=== PATIENT | male | born 1940 | race Caucasian/White ===

== ENCOUNTER 2020-06-15 07:37 | Inpatient (IN) | payer MEDICARE, BC ==
[~2020-06-15] VITALS: Ht 180.3 cm; Wt 50.8 kg
[~2020-06-15 07:37] MED LIST: BRETHINE PO; CEFDINIR300 MG PO; CENTRUM SILVER1 EAC1 PO; COZAAR 25MG TAB25 MG PO; DOXYCYCLINE HY100 M2 PO; FEOSOL325 MG PO; FLOMAX 0.4 MG0.4 MG PO; HYDROCODON-ACE1 EAC6 PO; IPRAT-ALBUT 0.5-3 ML INH; LASIX20 MG PO; LEVAQUIN750 MG PO; MEDROL DOSEPAK 24 MG PO; PREDNISONE 5 MG5 MG PO; PREDNISONE20 MG PO; PROAIR HFA8.5 GM INH; PROSCAR 5 MG TAB5 MG PO; SINGULAIR10 MG PO; SPIRIVA18 MCG INH; THEOPHYLLINE400 MG PO; VIBRAMYCIN100 MG PO; WIXELA 250-501 EACH INH
[2020-06-15 08:42] LABS: HEMOGLOBIN 8.7 gm/dl (14.0-17.5); RED BLOOD COUNT 2.87 M/UL (4.20-5.50); WHITE BLOOD COUNT 7.2 K/UL (4.5-11.0)
[2020-06-16 03:47] LABS: HEMOGLOBIN 8.7 gm/dl (14.0-17.5); RED BLOOD COUNT 2.89 M/UL (4.20-5.50); WHITE BLOOD COUNT 5.6 K/UL (4.5-11.0)
[2020-06-17 04:28] LABS: RED BLOOD COUNT 2.34 M/UL (4.20-5.50); WHITE BLOOD COUNT 3.7 K/UL (4.5-11.0)
[2020-06-17 18:05] LABS: HEMOGLOBIN 8.6 gm/dl (14.0-17.5)
[2020-06-18 03:26] LABS: HEMOGLOBIN 8.9 gm/dl (14.0-17.5)
[2020-06-18 03:50] LABS: RED BLOOD COUNT 2.98 M/UL (4.20-5.50); WHITE BLOOD COUNT 7.7 K/UL (4.5-11.0)
[2020-06-19 03:19] LABS: HEMOGLOBIN 8.2 gm/dl (14.0-17.5); RED BLOOD COUNT 2.74 M/UL (4.20-5.50); WHITE BLOOD COUNT 8.5 K/UL (4.5-11.0)
[2020-10-23] MEDS ORDERED: CIPRO500 MG PO (16:05)
== END 2020-06-19 12:47 | disposition short-term general hospital (02) | DRG 682 ==
LOC: ER1 07:37 → CDU 12:35 → PROG CARE 12:35
PROVIDERS: Emergency Medicine; Internal Medicine Pulmonary Disease; Physician Assistant; ADMIT Internal Medicine
PROC: 5A09457 Assistance with Respiratory Ventilation, 24-96 Consecutive Hours, Continuous Positive Airway Pressure (ICD-10-PCS; 2020-06-15)
PROC: 30233N1 Transfusion of Nonautologous Red Blood Cells into Peripheral Vein, Percutaneous Approach (ICD-10-PCS; principal; 2020-06-17)
DX: N17.9 Acute kidney failure, unspecified (principal); J96.21 Acute and chronic respiratory failure with hypoxia; J96.22 Acute and chronic respiratory failure with hypercapnia; E43 Unspecified severe protein-calorie malnutrition; J44.1 Chronic obstructive pulmonary disease with (acute) exacerbation; Z68.1 Body mass index [BMI] 19.9 or less, adult; R64 Cachexia; J44.0 Chronic obstructive pulmonary disease with (acute) lower respiratory infection; I12.0 Hypertensive chronic kidney disease with stage 5 chronic kidney disease or end stage renal disease; Z20.822 Contact with and (suspected) exposure to COVID-19; N13.1 Hydronephrosis with ureteral stricture, not elsewhere classified; E87.70 Fluid overload, unspecified; Z66 Do not resuscitate; N18.30 Chronic kidney disease, stage 3 unspecified; I48.0 Paroxysmal atrial fibrillation; I71.4 Abdominal aortic aneurysm, without rupture; R62.7 Adult failure to thrive; F17.210 Nicotine dependence, cigarettes, uncomplicated; M19.90 Unspecified osteoarthritis, unspecified site; M81.0 Age-related osteoporosis without current pathological fracture; J60 Coalworker's pneumoconiosis; M95.4 Acquired deformity of chest and rib; J20.9 Acute bronchitis, unspecified; D63.1 Anemia in chronic kidney disease; N40.0 Benign prostatic hyperplasia without lower urinary tract symptoms; Z80.0 Family history of malignant neoplasm of digestive organs; Z88.0 Allergy status to penicillin; Z99.81 Dependence on supplemental oxygen; Z80.7 Family history of other malignant neoplasms of lymphoid, hematopoietic and related tissues; Z98.49 Cataract extraction status, unspecified eye; Z82.49 Family history of ischemic heart disease and other diseases of the circulatory system; Z83.6 Family history of other diseases of the respiratory system; Z84.1 Family history of disorders of kidney and ureter; Z88.7 Allergy status to serum and vaccine; Z79.899 Other long term (current) drug therapy
CPT/HCPCS: 36415; 36430; 36600; 71045; 80053; 81001; 82550; 82553; 82803; 83540; 83550; 83690; 83735; 83874; 83880; 84484; 85014; 85018; 85025; 86140; 86850; 86900; 86901; 86920; 87086; 93005; 94640; 94660; 94664; 94760; 96365; 96375; 97162; 99285; A6212; J1650; J1940; J2405; J2920; J2930; J7030; P9016; U0002

== ENCOUNTER 2020-07-06 07:20 | Inpatient (IN) | payer MEDICARE, BC ==
[~2020-07-06] VITALS: Ht 180.3 cm; Wt 52.2 kg
[2020-07-06 09:13] LABS: RED BLOOD COUNT 1.7 M/UL (4.20-5.50); WHITE BLOOD COUNT 7.8 K/UL (4.5-11.0)
[2020-07-06 10:13] LABS: HEMOGLOBIN 5.1 gm/dl (14.0-17.5)
[2020-07-06] MEDS ORDERED: ELIQUIS 2.5 MG2.5 MG PO (10:31)
[2020-07-06] MEDS ORDERED: NICOTINE PATCH1 EAC2 TOP (10:43)
[2020-07-06] MEDS ORDERED: MIRALAX17 GM PO (10:46)
[2020-07-06] MEDS ORDERED: VITAMIN B-121000 MCG PO (10:51)
[2020-07-06 23:34] LABS: HEMOGLOBIN 6.8 gm/dl (14.0-17.5)
[2020-07-07 07:09] LABS: HEMOGLOBIN 8.2 gm/dl (14.0-17.5)
[2020-07-07 07:32] LABS: RED BLOOD COUNT 2.79 M/UL (4.20-5.50); WHITE BLOOD COUNT 5.7 K/UL (4.5-11.0)
[2020-07-07 14:12] LABS: HEMOGLOBIN 7.8 gm/dl (14.0-17.5)
[2020-07-08 04:05] LABS: HEMOGLOBIN 8.5 gm/dl (14.0-17.5); RED BLOOD COUNT 2.84 M/UL (4.20-5.50); WHITE BLOOD COUNT 5.5 K/UL (4.5-11.0)
--- NOTE | 2020-07-08 04:55 | NUR ---
MORNING LABS CAME BACK WITH GLUCOSE AT 68. GAVE PATIENT 7UP AND APPLE JUICE WITH SUGAR ADDED.
[2020-07-08 18:23] LABS: HEMOGLOBIN 8.7 gm/dl (14.0-17.5); RED BLOOD COUNT 2.96 M/UL (4.20-5.50)
[2020-07-08 18:30] LABS: WHITE BLOOD COUNT 7.6 K/UL (4.5-11.0)
[2020-07-09 04:11] LABS: HEMOGLOBIN 8.1 gm/dl (14.0-17.5); RED BLOOD COUNT 2.79 M/UL (4.20-5.50)
[2020-07-10 03:02] LABS: HEMOGLOBIN 7.6 gm/dl (14.0-17.5); RED BLOOD COUNT 2.61 M/UL (4.20-5.50); WHITE BLOOD COUNT 5.3 K/UL (4.5-11.0)
[2020-07-11 02:32] LABS: HEMOGLOBIN 8.6 gm/dl (14.0-17.5); RED BLOOD COUNT 2.95 M/UL (4.20-5.50); WHITE BLOOD COUNT 5.5 K/UL (4.5-11.0)
[2020-07-12 07:18] LABS: HEMOGLOBIN 8.7 gm/dl (14.0-17.5); RED BLOOD COUNT 2.98 M/UL (4.20-5.50); WHITE BLOOD COUNT 5.5 K/UL (4.5-11.0)
[2020-07-13 02:44] LABS: HEMOGLOBIN 7.7 gm/dl (14.0-17.5); RED BLOOD COUNT 2.81 M/UL (4.20-5.50)
[2020-07-13 03:20] LABS: WHITE BLOOD COUNT 3.9 K/UL (4.5-11.0)
[2020-07-14 02:20] LABS: HEMOGLOBIN 8.2 gm/dl (14.0-17.5); RED BLOOD COUNT 2.82 M/UL (4.20-5.50); WHITE BLOOD COUNT 4.6 K/UL (4.5-11.0)
[2020-07-15 03:54] LABS: HEMOGLOBIN 8.2 gm/dl (14.0-17.5); RED BLOOD COUNT 2.79 M/UL (4.20-5.50); WHITE BLOOD COUNT 4.9 K/UL (4.5-11.0)
[2020-07-15] MEDS ORDERED: ZYVOX600 MG PO (17:13)
[2020-07-16 02:37] LABS: HEMOGLOBIN 8.4 gm/dl (14.0-17.5); RED BLOOD COUNT 2.88 M/UL (4.20-5.50); WHITE BLOOD COUNT 4.9 K/UL (4.5-11.0)
[2020-10-23] MEDS ORDERED: CIPRO500 MG PO (16:05)
== END 2020-07-16 16:45 | disposition home health service (06) | DRG 177 ==
LOC: ER1 07:20 → MED SURG 4 11:26 → PROG CARE 11:26 → CDU 11:26 → PROG CARE 19:39 → M/S 07-14 13:24 → MED SURG 4 07-14 20:34
PROVIDERS: Emergency Medicine; Internal Medicine; Internal Medicine Infectious Disease; Physician Assistant Medical; ADMIT Internal Medicine
PROC: 30233N1 Transfusion of Nonautologous Red Blood Cells into Peripheral Vein, Percutaneous Approach (ICD-10-PCS; 2020-07-06)
PROC: 30233N1 Transfusion of Nonautologous Red Blood Cells into Peripheral Vein, Percutaneous Approach (ICD-10-PCS; 2020-07-07)
PROC: B24BZZZ Ultrasonography of Heart with Aorta (ICD-10-PCS; principal; 2020-07-12)
DX: J15.8 Pneumonia due to other specified bacteria (principal); I50.33 Acute on chronic diastolic (congestive) heart failure; D62 Acute posthemorrhagic anemia; Z20.822 Contact with and (suspected) exposure to COVID-19; I13.0 Hypertensive heart and chronic kidney disease with heart failure and stage 1 through stage 4 chronic kidney disease, or unspecified chronic kidney disease; N39.0 Urinary tract infection, site not specified; R78.81 Bacteremia; N13.30 Unspecified hydronephrosis; J44.0 Chronic obstructive pulmonary disease with (acute) lower respiratory infection; I48.20 Chronic atrial fibrillation, unspecified; J96.11 Chronic respiratory failure with hypoxia; E46 Unspecified protein-calorie malnutrition; Z68.1 Body mass index [BMI] 19.9 or less, adult; N18.30 Chronic kidney disease, stage 3 unspecified; D50.9 Iron deficiency anemia, unspecified; B95.2 Enterococcus as the cause of diseases classified elsewhere; E16.2 Hypoglycemia, unspecified; Z66 Do not resuscitate; I27.20 Pulmonary hypertension, unspecified; G89.29 Other chronic pain; M54.9 Dorsalgia, unspecified; J60 Coalworker's pneumoconiosis; N40.0 Benign prostatic hyperplasia without lower urinary tract symptoms; F17.210 Nicotine dependence, cigarettes, uncomplicated; Z99.81 Dependence on supplemental oxygen; Z80.0 Family history of malignant neoplasm of digestive organs; Z88.0 Allergy status to penicillin; Z80.7 Family history of other malignant neoplasms of lymphoid, hematopoietic and related tissues; Z82.49 Family history of ischemic heart disease and other diseases of the circulatory system; Z88.7 Allergy status to serum and vaccine; Z79.899 Other long term (current) drug therapy; Z79.01 Long term (current) use of anticoagulants
CPT/HCPCS: ECHO; 36415; 36430; 36600; 71045; 80048; 80053; 80202; 81001; 82270; 82550; 82553; 82607; 82728; 82746; 82803; 82962; 83540; 83550; 83605; 83735; 83874; 83880; 84484; 85014; 85018; 85025; 85027; 85610; 85730; 86140; 86850; 86900; 86901; 86920; 87040; 87077; 87086; 87186; 92610; 93005; 93306; 94640; 94664; 94760; 96365; 96366; 96367; 96368; 96376; 97110-GP-CQ; 97163; 97530-GP-CQ; 99285; A6212; C9113; J0456; J0696; J1610; J1756; J1940; J2185; J2248; J2270; J3370; J3475; J7030; J7050; J7070; P9016; P9047; U0002

== ENCOUNTER 2020-08-06 17:49 | Emergency (ER) | payer MEDICARE, BC ==
[~2020-08-06 17:49] MED LIST changes: +ELIQUIS 2.5 MG2.5 MG PO; +MIRALAX17 GM PO; +NICOTINE PATCH1 EAC2 TOP; +VITAMIN B-121000 MCG PO; +ZYVOX600 MG PO
[2020-08-06 19:04] LABS: HEMOGLOBIN 7.6 gm/dl (14.0-17.5); RED BLOOD COUNT 2.58 M/UL (4.20-5.50); WHITE BLOOD COUNT 5.6 K/UL (4.5-11.0)
[2020-08-06 19:26] LABS: BUN/CREATININE RATIO 21 (0-10)
[2020-08-06] MEDS ORDERED: MACROBID 100 M100 M1 PO (21:18)
[2020-08-06] MEDS ORDERED: PREDNISONE 10 M10 MG PO (21:25)
[2020-10-23] MEDS ORDERED: CIPRO500 MG PO (16:05)
== END 2020-08-06 21:45 | disposition home or self-care (01) ==
LOC: ER1 17:49
PROVIDERS: Physician Assistant
DX: J44.1 Chronic obstructive pulmonary disease with (acute) exacerbation (principal); N39.0 Urinary tract infection, site not specified; N18.9 Chronic kidney disease, unspecified; I50.9 Heart failure, unspecified; Z20.822 Contact with and (suspected) exposure to COVID-19; F17.210 Nicotine dependence, cigarettes, uncomplicated; Z88.0 Allergy status to penicillin; Z79.899 Other long term (current) drug therapy
CPT/HCPCS: 0240U; 36415; 71045; 80053; 81001; 82550; 82553; 83735; 83874; 83880; 84484; 85025; 87086; 93005; 94664; 96374; 99285; J2930

== ENCOUNTER 2020-08-22 13:46 | Inpatient (IN) | payer MEDICARE, BC ==
[~2020-08-22] VITALS: Ht 177.8 cm; Wt 58.7 kg
[~2020-08-22 13:46] MED LIST changes: +MACROBID 100 M100 M1 PO; +PREDNISONE 10 M10 MG PO
[2020-08-22 15:30] LABS: HEMOGLOBIN 9.2 gm/dl (14.0-17.5); RED BLOOD COUNT 3.06 M/UL (4.20-5.50); WHITE BLOOD COUNT 20.4 K/UL (4.5-11.0)
[2020-08-23 04:11] LABS: HEMOGLOBIN 9.4 gm/dl (14.0-17.5); RED BLOOD COUNT 3.04 M/UL (4.20-5.50); WHITE BLOOD COUNT 18.2 K/UL (4.5-11.0)
[2020-08-24 04:22] LABS: HEMOGLOBIN 7.7 gm/dl (14.0-17.5)
[2020-08-24 04:25] LABS: RED BLOOD COUNT 2.58 M/UL (4.20-5.50); WHITE BLOOD COUNT 11.5 K/UL (4.5-11.0)
[2020-08-25 03:42] LABS: HEMOGLOBIN 7.7 gm/dl (14.0-17.5); RED BLOOD COUNT 2.56 M/UL (4.20-5.50); WHITE BLOOD COUNT 8.9 K/UL (4.5-11.0)
[2020-08-26 11:08] LABS: HEMOGLOBIN 8.4 gm/dl (14.0-17.5); RED BLOOD COUNT 2.72 M/UL (4.20-5.50)
[2020-08-27] MEDS ORDERED: MULTAQ400 MG PO (09:08)
[2020-08-27] MEDS ORDERED: HYDROXYZINE PAM25 MG PO (09:08)
[2020-08-27] MEDS ORDERED: ROBITUSSIN DM UD5 ML PO (09:13)
--- NOTE | 2020-08-27 11:21 | NUR ---
08/27/20 1115 CALLED [facility] AND SPOKE TO THEM ABOUT PATIENT DISCHARGE. INFORMED THEM THAT PATIENT WILL NEED A PERIPHERAL IV PLACED FOR 5 DAYS OF ANTIBIOTICS Q8H AT HOME STARTING BOOKER.
[2020-10-23] MEDS ORDERED: CIPRO500 MG PO (16:05)
== END 2020-08-27 13:10 | disposition home health service (06) | DRG 291 ==
LOC: ER1 13:46 → CDU 16:37 → ER1 16:37 → CDU 21:03 → MED SURG 4 21:03 → CDU 08-23 13:35 → PROG CARE 08-24 04:31
PROVIDERS: Internal Medicine; Physician Assistant Medical; Preventive Medicine Occupational Medicine; ADMIT Family Medicine
DX: I13.0 Hypertensive heart and chronic kidney disease with heart failure and stage 1 through stage 4 chronic kidney disease, or unspecified chronic kidney disease (principal); I50.33 Acute on chronic diastolic (congestive) heart failure; Z20.822 Contact with and (suspected) exposure to COVID-19; J96.21 Acute and chronic respiratory failure with hypoxia; N30.00 Acute cystitis without hematuria; N13.6 Pyonephrosis; R64 Cachexia; Z68.1 Body mass index [BMI] 19.9 or less, adult; I48.92 Unspecified atrial flutter; B96.5 Pseudomonas (aeruginosa) (mallei) (pseudomallei) as the cause of diseases classified elsewhere; J44.9 Chronic obstructive pulmonary disease, unspecified; D72.829 Elevated white blood cell count, unspecified; J60 Coalworker's pneumoconiosis; N40.1 Benign prostatic hyperplasia with lower urinary tract symptoms; R33.8 Other retention of urine; F17.210 Nicotine dependence, cigarettes, uncomplicated; N18.30 Chronic kidney disease, stage 3 unspecified; F41.9 Anxiety disorder, unspecified; I48.91 Unspecified atrial fibrillation; D64.9 Anemia, unspecified; I27.20 Pulmonary hypertension, unspecified; Z88.0 Allergy status to penicillin; Z99.81 Dependence on supplemental oxygen; Z79.899 Other long term (current) drug therapy; Z80.0 Family history of malignant neoplasm of digestive organs; Z80.7 Family history of other malignant neoplasms of lymphoid, hematopoietic and related tissues
CPT/HCPCS: 0240U; 36415; 36600; 71045; 80053; 81001; 82550; 82553; 82803; 83605; 83690; 83735; 83874; 83880; 84439; 84443; 84484; 85014; 85018; 85025; 85027; 85610; 85652; 85730; 86140; 86850; 86900; 86901; 86920; 87077; 87086; 87186; 93005; 93970; 94640; 94664; 94760; 96365; 96375; 99285; G0378; J0692; J0696; J1160; J1650; J1940; J7030; Q0177

== ENCOUNTER 2020-10-12 21:37 | Emergency (ER) | payer MEDICARE, BC ==
[~2020-10-12 21:37] MED LIST changes: +HYDROXYZINE PAM25 MG PO; +MULTAQ400 MG PO; +ROBITUSSIN DM UD5 ML PO
[2020-10-12 23:02] LABS: HEMOGLOBIN 11.6 gm/dl (14.0-17.5); RED BLOOD COUNT 3.73 M/UL (4.20-5.50); WHITE BLOOD COUNT 17.9 K/UL (4.5-11.0)
[2020-10-12 23:23] LABS: BUN/CREATININE RATIO 28 (0-10)
[2020-10-23] MEDS ORDERED: CIPRO500 MG PO (16:05)
== END 2020-10-13 03:00 | disposition home or self-care (01) ==
LOC: ER1 21:37
PROVIDERS: Family Medicine
DX: J96.11 Chronic respiratory failure with hypoxia (principal); I12.9 Hypertensive chronic kidney disease with stage 1 through stage 4 chronic kidney disease, or unspecified chronic kidney disease; N18.9 Chronic kidney disease, unspecified; G89.29 Other chronic pain; Z87.442 Personal history of urinary calculi; Z79.899 Other long term (current) drug therapy; F17.200 Nicotine dependence, unspecified, uncomplicated; Z79.52 Long term (current) use of systemic steroids; Z96.0 Presence of urogenital implants
CPT/HCPCS: 36600; 71045; 73630; 80053; 81001; 82550; 82553; 82803; 83605; 83874; 83880; 84484; 85025; 87077; 87086; 87186; 93005; 94664; 99284

== ENCOUNTER 2020-10-26 06:52 | Inpatient (IN) | payer BLACK LUNG, MEDICARE, BC ==
[~2020-10-26] VITALS: Ht 177.8 cm; Wt 56.2 kg
[~2020-10-26 06:52] MED LIST changes: +CIPRO500 MG PO
[2020-10-26 07:57] LABS: HEMOGLOBIN 11.4 gm/dl (14.0-17.5); RED BLOOD COUNT 3.71 M/UL (4.20-5.50); WHITE BLOOD COUNT 21.4 K/UL (4.5-11.0)
[2020-10-26] MEDS ORDERED: METOPROLOL TART25 MG PO (10:39)
[2020-10-26] MEDS ORDERED: PREDNISONE 5 MG5 MG PO (10:42)
[2020-10-26] MEDS ORDERED: NASONEX SPRAY 117 GM (16:05)
[2020-10-26] MEDS ORDERED: ADVAIR 250-501 EACH INH (16:06)
[2020-10-26] MEDS ORDERED: VISTARIL 25 MG25 MG PO (16:09)
[2020-10-26] MEDS ORDERED: LASIX TAB 20 MG20 MG PO (17:00)
[2020-10-27 03:45] LABS: HEMOGLOBIN 9.8 gm/dl (14.0-17.5); WHITE BLOOD COUNT 26.7 K/UL (4.5-11.0)
[2020-10-27 03:50] LABS: RED BLOOD COUNT 3.23 M/UL (4.20-5.50)
[2020-10-27 16:19] LABS: BORDETELLA PARAPERTUSSIS Not Detected (Not Detectd); BORDETELLA PERTUSSIS Not Detected (Not Detectd); CHLAMYDIA PNEUMONIAE Not Detected (Not Detectd); CORONAVIRUS HKU1 Not Detected (Not Detectd); CORONAVIRUS NL63 Not Detected (Not Detectd); CORONAVIRUS OC43 Not Detected (Not Detectd); CORONOAVIRUS 229E Not Detected (Not Detectd); HUMAN METAPNEUMOVIRUS Not Detected (Not Detectd); HUMAN RHINOVIRUS/ENTEROVIRUS Not Detected (Not Detectd); INFLUENZA A Not Detected (Not Detectd); INFLUENZA B Not Detected (Not Detectd); MYCOPLASMA PNEUMONIAE Not Detected (Not Detectd); PARAINFLUENZA VIRUS 1 Not Detected (Not Detectd); PARAINFLUENZA VIRUS 2 Not Detected (Not Detectd); PARAINFLUENZA VIRUS 3 Not Detected (Not Detectd); PARAINFLUENZA VIRUS 4 Not Detected (Not Detectd); RESPIRATORY SYNCYTIAL VIRUS Not Detected (Not Detectd)
[2020-10-27 17:39] LABS: SARS-CoV-2 NOT DETECTED (Not Detectd)
[2020-10-28 03:25] LABS: HEMOGLOBIN 8.8 gm/dl (14.0-17.5); RED BLOOD COUNT 2.92 M/UL (4.20-5.50); WHITE BLOOD COUNT 27.2 K/UL (4.5-11.0)
[2020-10-29 02:55] LABS: WHITE BLOOD COUNT 25.3 K/UL (4.5-11.0)
[2020-10-30 03:17] LABS: HEMOGLOBIN 9.6 gm/dl (14.0-17.5); RED BLOOD COUNT 3.13 M/UL (4.20-5.50); WHITE BLOOD COUNT 25.5 K/UL (4.5-11.0)
--- NOTE | 2020-10-30 06:19 | NUR ---
PATIENT HAD TROUBLE URINATING ALL THROUGHOUT THE NIGHT. HE WOULD ALSO DESAT WHEN TRYING TO URINATE AND THE PATIENT ASKED FOR THE XIONG BACK D/T THE PAIN HE WAS HAVING WHEN TRYING TO URINATE. THE PATIENT DID EXPIRENCE DRIPPING, PAIN AND TROUBLE EMPTYING BLADDER. THE PATIENT URINATED 5 MINS PRIOR TO PLACING THE XIONG AND HE STATED THAT HE COULD NOT GO ANYMORE. AFTER THE XIONG HE HAD 300 OUT.
[2020-10-31 03:16] LABS: HEMOGLOBIN 9.8 gm/dl (14.0-17.5); RED BLOOD COUNT 3.25 M/UL (4.20-5.50); WHITE BLOOD COUNT 23.4 K/UL (4.5-11.0)
[2020-11-01 03:05] LABS: HEMOGLOBIN 10.2 gm/dl (14.0-17.5); RED BLOOD COUNT 3.36 M/UL (4.20-5.50)
[2020-11-01 03:31] LABS: WHITE BLOOD COUNT 30.2 K/UL (4.5-11.0)
--- NOTE | 2020-11-01 03:50 | NUR ---
NOTIFIED: WBC 30.2, UP FROM 23.[address] TELLO AT THIS TIME. NO NEW ORDERS AT THIS TIME.
--- NOTE | 2020-11-01 14:00 | NUR ---
NO CHANGE FROM PREVIOUS ASSESSMENT
[2020-11-02 05:10] LABS: RED BLOOD COUNT 3.34 M/UL (4.20-5.50)
[2020-11-02 05:53] LABS: WHITE BLOOD COUNT 31.3 K/UL (4.5-11.0)
== END 2020-11-02 14:21 | disposition home health service (06) | DRG 871 ==
LOC: ER1 06:52 → PROG CARE 15:08 → CDU 15:08 → PROG CARE 16:58
PROVIDERS: Emergency Medicine; Internal Medicine; Internal Medicine Nephrology; Physician Assistant Medical; ADMIT Internal Medicine
PROC: 5A0935A Assistance with Respiratory Ventilation, Less than 24 Consecutive Hours, High Flow/Velocity Cannula (ICD-10-PCS; principal; 2020-10-26)
DX: A41.9 Sepsis, unspecified organism (principal); J96.21 Acute and chronic respiratory failure with hypoxia; J96.22 Acute and chronic respiratory failure with hypercapnia; J15.6 Pneumonia due to other Gram-negative bacteria; N17.9 Acute kidney failure, unspecified; I13.0 Hypertensive heart and chronic kidney disease with heart failure and stage 1 through stage 4 chronic kidney disease, or unspecified chronic kidney disease; I50.32 Chronic diastolic (congestive) heart failure; Z68.1 Body mass index [BMI] 19.9 or less, adult; R64 Cachexia; N13.6 Pyonephrosis; Z66 Do not resuscitate; Z20.822 Contact with and (suspected) exposure to COVID-19; R65.20 Severe sepsis without septic shock; N18.30 Chronic kidney disease, stage 3 unspecified; D63.1 Anemia in chronic kidney disease; R33.9 Retention of urine, unspecified; J60 Coalworker's pneumoconiosis; I27.20 Pulmonary hypertension, unspecified; J43.9 Emphysema, unspecified; N40.0 Benign prostatic hyperplasia without lower urinary tract symptoms; I48.0 Paroxysmal atrial fibrillation; F17.210 Nicotine dependence, cigarettes, uncomplicated; Z87.440 Personal history of urinary (tract) infections; Z99.81 Dependence on supplemental oxygen; Z88.0 Allergy status to penicillin; Z88.8 Allergy status to other drugs, medicaments and biological substances; Z80.0 Family history of malignant neoplasm of digestive organs; Z80.6 Family history of leukemia; Z79.01 Long term (current) use of anticoagulants; Z90.49 Acquired absence of other specified parts of digestive tract
CPT/HCPCS: 0240U; 36415; 36600; 51701; 71045; 80048; 80053; 81001; 82436; 82550; 82553; 82570; 82728; 82803; 83540; 83550; 83605; 83690; 83735; 84133; 84156; 84300; 84484; 85025; 85027; 85379; 85610; 85730; 86140; 87040; 87070; 87086; 87205; 87633; 93005; 94640; 94664; 94760; 96374; 96375; 99285; J0696; J1644; J2020; J2185; J2270; J2405; J2920; J2930; Q0177; Q9967